=== PATIENT | female | born 1965 | race Native Hawaiian/Other Pacific Islander ===

== ENCOUNTER 2016-12-19 17:39 | Emergency (ER) | payer OTHER ==
[~2016-12-19] VITALS: Ht 170.2 cm; Wt 113.4 kg
[2016-12-19 19:14] LABS: PLATELET COUNT 269 K/uL (152-353)
[2016-12-19 19:21] LABS: POTASSIUM 4.6 mmol/L (3.6-5.2); SODIUM 138 mmol/L (136-145)
[2016-12-19 20:50] VITALS: BP 138/96; TEMP 98.5
== END 2016-12-19 20:52 | disposition home or self-care (01) ==
LOC: ED 17:39
DX: M54.5 Low back pain (principal); M47.897 Other spondylosis, lumbosacral region
CPT/HCPCS: 80053; 81000; 85027; 96365; 96376; 99284; J1885